=== PATIENT | male | born 1970 | race Caucasian/White ===

== ENCOUNTER 2018-05-29 15:35 | Emergency (ER) | payer OTHER ==
[~2018-05-29] VITALS: Ht 182.9 cm; Wt 90.7 kg
[2018-05-29 15:53] LABS: BASOPHILS 0.5 % (0.0-2.0); EOSINOPHILS 1.9 % (0.0-3.0); HEMATOCRIT 53.3 % (42.0-52.0); HEMOGLOBIN 18.1 gm/dL (14.0-18.0); LYMPHOCYTES 51.2 % (24.0-44.0); MCH 31.6 pg (26.0-34.0); MCV 92.9 fL (80.0-100.0); PLATELET COUNT 391 thou/uL (150-400); POLYS 40.4 % (36.0-66.0); RBC 5.73 mil/uL (4.50-6.00); RDW 12.5 % (10.5-14.5); WBC 9.8 thou/uL (4.0-11.0)
[2018-05-29 16:01] LABS: ANION GAP 11 mmol/L (7-16); BUN 12 mg/dL (7-18); CALCIUM 8.6 mg/dL (8.5-10.1); CHLORIDE 103 mmol/L (98-107); CO2 26 mmol/L (21-32); CREATININE 1.3 mg/dL (0.7-1.3); GLUCOSE 190 mg/dL (74-106); POTASSIUM 3.3 mmol/L (3.5-5.1); SODIUM 140 mmol/L (136-145)
[2018-05-29 16:09] LABS: ALBUMIN 3.4 g/dL (3.4-5.0); SGOT 32 U/L (15-37); SGPT 69 U/L (30-65); TOTAL BILIRUBIN 0.5 mg/dL (<0.1-1.0); TOTAL PROTEIN 7.3 g/dL (6.4-8.2); TROPONIN-I <0.06 ng/mL (<0.06)
[2018-05-29 18:29] VITALS: BP 139/74
[2018-05-29] MEDS ORDERED: AUGMENTIN 500-1 EACH PO (18:37)
--- NOTE | 2018-05-31 15:03 | EKG ---
[address] [address] ELECTROCARDIOGRAM REPORT Name: LIANET ADAMS Room #: JAELYN Blanton#: [id number] Admission: 05/29/18 Attend Phys: Discharge: 05/29/18 Date of : 72 Report #: [id number] THIS REPORT FOR: //name// [facility] ED Test Date: 2018-05-29 Test Time: 15:38:50 Pat Name: LIANET ADAMS Department: Room: Gender: [employer] Operations Director: : 1970 Requested By: Justin Estrada Order Number: [id number] MD: Jesus Garcia Measurements Intervals [place] Rate: 78 P: 42 MT: 144 QRS: 1 QRSD: 92 T: -18 QT: 410 QTc: 468 Interpretive Statements Sinus rhythm No previous ECG available for comparison Electronically Signed On 05-31-2018 15:02:47 [employer]ING MACHINE [employer]END[employer] by Jesus Garcia [email or web address] <ELECTRONICALLY SIGNED> By: Jesus Garcia MD 05/31/18 1502 [id number] Jesus Garcia MD /EPI
== END 2018-05-29 18:35 | disposition home or self-care (01) ==
LOC: ER 15:35
PROVIDERS: Physician Assistant
DX: S01.111A Laceration without foreign body of right eyelid and periocular area, initial encounter (principal); S01.21XA Laceration without foreign body of nose, initial encounter; S02.2XXA Fracture of nasal bones, initial encounter for closed fracture; R55 Syncope and collapse; Z23 Encounter for immunization; W19.XXXA Unspecified fall, initial encounter; Y93.89 Activity, other specified; Y92.89 Other specified places as the place of occurrence of the external cause; Y99.8 Other external cause status